=== PATIENT | male | born 1955 | race Caucasian/White ===

== ENCOUNTER → 2016-09-29 | Outpatient (CLI) | payer BC ==
[~2016-09-29] MED LIST: ASPI-391 PO; RXC5 PO
--- NOTE | 2016-09-29 17:06 | DIAGNOSTIC IMAGING REPORT ---
CHEST 2 VIEWS ROUTINE CLINICAL HISTORY: PRE OP, LAB FIRST, THEN CPL COMPARISON STUDY: 08/08/2015 FINDINGS: The bones soft tissues and hemidiaphragms are normal. The cardiomediastinal silhouette is normal. The lungs are clear. The pulmonary vasculature is normal. IMPRESSION: Negative chest. Electronically signed by: Aydin Clark M.D. 09/29/2016 5:04 PM Dictated Date/Time: 09/29/2016 5:04 PM
== END | disposition home or self-care (01) ==
LOC: C.CPL 16:03
PROVIDERS: ATTEND Orthopaedic Surgery
DX: Z01.818 Encounter for other preprocedural examination (principal)

== ENCOUNTER 2017-04-24 10:18 | Inpatient (IN) | payer BC ==
[2017-03-24 09:47] VITALS: Ht 180.3 cm; Wt 107.0 kg
--- NOTE | 2017-03-24 10:14 | PAT Medication Instructions ---
Service Date Mar 24, 2017. Current Home Medication List Dhrhdnm-Wodhizkviigoa-Ftolhrzr (Excedrin Extra Strength), 2 TAB PO PRN Medication Instructions For Your Scheduled Surgery - Hold the following medications 1 week prior to surgery: Ljexjga-Vweqmsyrcqpap-Vktuwkzy (Excedrin Extra Strength), 2 TAB PO PRN - Take the following medications the morning of surgery with a sip of water OTHERWISE NOTHING TO EAT OR DRINK AFTER MIDNIGHT: Tylenol (may take if needed up to 4 hours prior to surgery) If you have any questions please call us at [phone] or [phone] or [phone]
[2017-03-24 10:48] LABS: BASO % 0.6 %; BASO ABS # 0.04 K/uL (0-0.2); EOS ABS # 0.21 K/uL (0-0.5); HEMATOCRIT 43.8 % (42-52); HEMOGLOBIN 14.8 g/dL (14.0-18.0); IG# 0.02 K/uL (0.00-0.02); LYMPH % 29.5 %; LYMPH ABS # 2.05 K/uL (1.2-3.4); MEAN CORPUSCULAR HEMOGLOBIN 30.1 pg (25-34); MEAN CORPUSCULAR HGB CONC 33.8 g/dl (32-36); MEAN PLATELET VOLUME 10.2 fL (7.4-10.4); MONO % 6.6 %; MONO ABS # 0.46 K/uL (0.11-0.59); NEUT ABS # 4.17 K/uL (1.4-6.5); PLATELET COUNT 250 K/uL (130-400); RED CELL DISTRIBUTION WIDTH CV 14.5 % (11.5-14.5); RED CELL DISTRIBUTION WIDTH SD 47.4 fL (36.4-46.3); WHITE BLOOD COUNT 6.95 K/uL (4.8-10.8)
[2017-03-24 10:53] LABS: INR 0.9 (0.9-1.1); PTT PATIENT 25.4 SECONDS (21.0-31.0)
[2017-03-24 12:02] LABS: CALCIUM 8.8 mg/dl (8.5-10.1); CREATININE 0.98 mg/dl (0.60-1.40); POTASSIUM 4.3 mmol/L (3.5-5.1)
--- NOTE | 2017-04-22 17:12 | HISTORY & PHYSICAL EXAMINATION ---
DATE OF ADMISSION: 04/24/2017 CHIEF COMPLAINT: Primary osteoarthritis of the right knee. HISTORY OF PRESENT ILLNESS: Jose Elias is a pleasant 62-year-old male who underwent a left total knee arthroplasty in August 2015. He did very well with that. Unfortunately, he has been having right knee pain. X-rays and clinical examination were diagnostic for primary osteoarthritis of the right knee. After failing extensive conservative treatment he has elected to proceed with a right total knee arthroplasty. PAST MEDICAL HISTORY: Denies. PAST SURGICAL HISTORY: Significant for removal of salivary gland, tonsillectomy, bilateral knee arthroscopies, surgery for perforated bowel and a left total knee arthroplasty in August 2015. ALLERGIES: None. MEDICATIONS: None. FAMILY HISTORY: Denies. SOCIAL HISTORY: He is , has 1-2 drinks a week, has a 10-year history of a pack a day and has 2 children. REVIEW OF SYSTEMS: He complains of right knee pain. All other pertinent review of systems are negative. PHYSICAL EXAMINATION: GENERAL: He is awake, alert and oriented x3. He is in no apparent distress. He is very pleasant. HEENT: Pupils are equal, round and reactive to light. Extraocular motion intact. Oral mucosa is pink and moist. HEART: Regular rate per radial pulse. LUNGS: Hollie symmetrically bilaterally with no audible breath sounds. ABDOMEN: Soft, nontender, nondistended. MUSCULOSKELETAL: On physical examination of the right knee, he is able to ambulate independently. There is a very mild effusion. He has bony hypertrophy of the right knee. He has significant tenderness to palpation along the medial joint line and over the distal medial femoral condyle. IMAGING DATA: X-rays of the right knee do show advanced osteoarthritis mostly involving the medial compartment. IMPRESSION: Primary osteoarthritis of the right knee. PLAN: Will proceed with a Biomet Vanguard total knee arthroplasty. Postoperatively, he will be started on aspirin 325 mg twice a day for DVT prophylaxis and kept in the hospital for 2 midnights for postoperative medical management.
[2017-04-24] VITALS (7 sets, daily range): BP systolic 102–140; BP diastolic 65–98; PULSE 62–91; TEMP 36.4–36.7; O2SAT 97–100
[~2017-04-24] VITALS: Ht 180.3 cm; Wt 107.0 kg
[~2017-04-24 10:18] MED LIST changes: +ACETAMINOPHEN 500 MG TAB PO SCH; +BUPIVACAINE 0.25% 30 ML VIAL ONE; +BUPIVACAINE 0.5 % 5 MG/1 ML PF 10ML VIAL ONE; +CEFAZOLIN 2000MG IV PUSH 10 ML IV SCH; +FAMOTIDINE 20 MG TAB PO SCH; +GABAPENTIN 300 MG CAP PO SCH; +LACTATED RINGER'S 1000ML 1,000 ML IV SCH; +LACTATED RINGER'S 1000ML 500 ML IV ONE; +LACTATED RINGER'S 1000ML IV SCH; +ROPIVACAINE 5MG/ML 30 ML 150 MG, BUPIVACAINE 0.5% MPF INJ 30 ML, EpINEphrine HCL INJ 0.... INFIL SCH; -RXC5 PO
--- NOTE | 2017-04-24 11:52 | History & Physical Bridge Note ---
H&P Re-Evaluation Bridge Note: I have examined the patient, reviewed the History & Physical and in the interval since the performance of the History & Physical I have noted the following changes of clinical significance: No changes noted
[2017-04-24] MEDS ORDERED: PROPOFOL IV EMULSION 10 MG/ML 20 ML VIAL IV ONE ×2 (13:43→16:10)
[2017-04-24] MEDS ORDERED: LIDOCAINE HCL 2% 2 ML VIAL (20MG/ML) ONE (13:43)
[2017-04-24] MEDS ORDERED: FENTANYL CITRATE INJ 50 MCG/1 ML 2 ML VIAL ONE (13:44)
[2017-04-24] MEDS ORDERED: MIDAZOLAM HCL 1 MG/ML 2ML VIAL ONE ×3 (13:48→15:55)
[2017-04-24] MEDS ORDERED: BACITRACIN 50000 UNIT VIAL ONE (13:59)
[2017-04-24] MEDS ORDERED: ORTHO JOINT ANESTHETIC ONE (13:59)
[2017-04-24] MEDS: TRANEXAMIC ACID INJ 1,000 MG in SYRINGE 0 ML IV SCH ×2 (14:30→16:30)
[2017-04-24] MEDS ORDERED: EpHEDrine SULFATE INJ 50 MG/ML AMP IV PRN (15:00)
[2017-04-24] MEDS ORDERED: ATROPINE SULFATE 0.1 MG/ML 5ML SYR IV PRN (15:00)
[2017-04-24] MEDS ORDERED: FLUMAZENIL 0.1 MG/1 ML 10 ML VIAL IV PRN (15:00)
[2017-04-24] MEDS ORDERED: ONDANSETRON INJ 2 MG/ML 2 ML VIAL IV PRN ×2 (15:00→16:45)
[2017-04-24] MEDS ORDERED: NALOXONE HCL 0.4 MG/1 ML VIAL/CARP IV PRN (15:00)
[2017-04-24] MEDS ORDERED: PROMETHAZINE HCL INJ 12.5 MG in SODIUM CHLORIDE 0.9% 50ML 50 ML IV PRN (15:00)
[2017-04-24] MEDS ORDERED: PHENYLEPHRINE HCL INJ 10 MG/ML VIAL ONE (16:02)
--- NOTE | 2017-04-24 16:36 | [facility] Post Operative Brief Note ---
Immediate Operative Summary Operative Date Apr 24, 2017. Pre-Operative Diagnosis right knee degenerative joint disease Post-Operative Diagnosis right knee degenerative joint disease Procedure(s) Performed right knee total arthroplasty Surgeon Dr. Darwin Sutton Enterprise Software Developer Surgeon(s) Sahil NGUYEN Estimated Blood Loss 5ML Findings as above Specimens Right knee bone and tissue Complication(s) None Disposition Recovery Room / PACU
[2017-04-24] MEDS ORDERED: MoRPHine SULFATE 2 MG/ML CARP IV PRN (16:45)
[2017-04-24] MEDS ORDERED: CEFAZOLIN IV 2,000 MG in DEXTROSE 5% 50ML 50 ML IV SCH (16:45)
[2017-04-24] MEDS ORDERED: MAGNESIUM HYDROXIDE SUSP 30 ML UDC PO PRN (16:45)
[2017-04-24] MEDS ORDERED: OXYCODONE HCL IR 5 MG TAB (IMMEDIATE RELEASE) PO PRN (16:45)
[2017-04-24] MEDS ORDERED: BISACODYL 10 MG SUPP PR PRN (16:45)
[2017-04-24] MEDS ORDERED: METOCLOPRAMIDE HCL INJ 5 MG/ML 2 ML VIAL IV PRN (16:45)
[2017-04-24] MEDS ORDERED: SOD PHOSPHATE/SOD BIPHOSPHATE ENEMA 132 ML BTL PR PRN (16:45)
--- NOTE | 2017-04-24 17:07 | DIAGNOSTIC IMAGING REPORT ---
RIGHT KNEE 2 VIEWS History: Right total knee arthroplasty. Degenerative arthritis. Postop. FINDINGS: The patient is status post a right total knee arthroplasty. The hardware is intact. No fracture or dislocation. Skin torie and surgical drains are in place. IMPRESSION: Right total knee arthroplasty. No evidence for hardware complication. Electronically signed by: Gary Ross M.D. 04/24/2017 5:06 PM Dictated Date/Time: 04/24/2017 5:05 PM
--- NOTE | 2017-04-24 17:14 | Anesthesiology Progress Note ---
Anesthesia Post Op Note Date & Time Apr 24, 2017 at 17:14 Vital Signs Pain Intensity: 0 Vital Signs Past 12 Hours Date Time Temp Pulse Resp B/P (MAP) Pulse Ox O2 Delivery O2 Flow Rate FiO2 04/24/17 16:42 36.4 81 16 100/60 98 Nasal Cannula 2 04/24/17 10:45 36.4 91 18 140/98 99 Room Air Notes Mental Status: alert / awake / arousable, participated in evaluation Pt Amnestic to Procedure: Yes Nausea / Vomiting: adequately controlled Pain: adequately controlled Airway Patency, RR, SpO2: stable & adequate BP & HR: stable & adequate Hydration State: stable & adequate Neuraxial Anesthesia: was administered, sensory block is resolving Anesthetic Complications: no major complications apparent
[2017-04-24] MEDS: SENNA 8.6 MG TAB PO SCH (20:49)
[2017-04-24] MEDS: KETOROLAC TROMETHAMINE 30 MG/ML VIAL IV. SCH (20:49)
[2017-04-24] MEDS: DOCUSATE SODIUM 100 MG CAP PO SCH (20:49)
[2017-04-24] MEDS: ASPIRIN 325 MG ECTAB PO SCH (20:49)
[2017-04-24] MEDS: ACETAMINOPHEN IV 1,000 MG in EMPTY BAG 0 ML IV SCH (20:50)
[2017-04-24] MEDS: SODIUM CHLORIDE 0.9% 1000ML 1,000 ML IV SCH (20:50)
[2017-04-24] MEDS: CEFAZOLIN IV 2,000 MG in SYRINGE 0 ML IV SCH (22:16)
[2017-04-25] VITALS (7 sets, daily range): BP systolic 103–126; BP diastolic 60–79; PULSE 68–86; TEMP 36.3–36.8; O2SAT 97–100
[2017-04-25] MEDS: KETOROLAC TROMETHAMINE 30 MG/ML VIAL IV. SCH ×4 (02:06→20:02)
[2017-04-25] MEDS: ACETAMINOPHEN IV 1,000 MG in EMPTY BAG 0 ML IV SCH ×4 (04:07→20:14)
[2017-04-25] MEDS: SODIUM CHLORIDE 0.9% 1000ML 1,000 ML IV SCH ×2 (04:09→13:29)
[2017-04-25] MEDS: CEFAZOLIN IV 2,000 MG in SYRINGE 0 ML IV SCH (05:33)
[2017-04-25 07:53] LABS: HEMATOCRIT 38.2 % (42-52); HEMOGLOBIN 13.2 g/dL (14.0-18.0); MEAN CELL VOLUME 88.4 fL (80-100); MEAN CORPUSCULAR HEMOGLOBIN 30.6 pg (25-34); MEAN CORPUSCULAR HGB CONC 34.6 g/dl (32-36); MEAN PLATELET VOLUME 10.4 fL (7.4-10.4); PLATELET COUNT 218 K/uL (130-400); RED CELL DISTRIBUTION WIDTH CV 14.2 % (11.5-14.5); RED CELL DISTRIBUTION WIDTH SD 46.3 fL (36.4-46.3); WHITE BLOOD COUNT 13.21 K/uL (4.8-10.8)
--- NOTE | 2017-04-25 08:12 | Discharge Instructions ---
Discharge Instructions Date of Service Apr 25, 2017. Admission Reason for Admission: Right Knee Degenerative Joint Disease Discharge Discharge Diagnosis / Problem: Right Total Knee Discharge Goals Goal(s): Decrease discomfort, Improve function Activity Recommendations Activity Limitations: as noted below . Instructions / Follow-Up Instructions / Follow-Up Activity and Therapy Recommendations: * If you are using [facility] then Physical Therapy will be provided until they feel you are ready to start Outpatient Physical Therapy. If you are not using a Home Health agency then Outpatient Physical Therapy should start about 3-5 days from your day of surgery. Therapy will last about 6-10 weeks * It is important not to put a pillow under your knee when you are relaxing or sleeping. It is just as important to make sure you are getting your knee perfectly straight as it is to regain your knee bend. * You were shown a series of exercises in the hospital. Do these exercises three times each day including the exercises you were shown in physical therapy. * Get up and walk several times each day. For the first four weeks, try not to stand or walk for more than one hour at a time. If you do stand or walk for more than one hour, you will not hurt anything, but your leg will likely swell. * As you feel comfortable, you may change from the walker or crutches to a cane and then to independent walking. Medications: * Narcotic You will likely be sent home from the hospital with a prescription for the narcotic pain medication that worked best throughout your stay. * Aspirin Most patients will be required to take Aspirin 325mg twice a day for 6 weeks after surgery. This is obtained [id number] and a prescription is not necessary. * Other medications may be prescribed for specific circumstances. If you have any questions, please call the office at . * Resume previous home medications unless otherwise instructed TEDs/Elastic Stockings: The white elastic stockings help limit swelling and prevent blood clots from forming in your legs.~ The more you wear them, the more they work. Wear them for six weeks. Showering: You may shower 5 days from the day of surgery. Let the soapy shower water run over it the torie. Do not scrub or soak the dressing or the incision. Things To Watch For: * Drainage from the incision site that occurs more than one week after your surgery. * Increased redness at the incision site. * Fever above 102 degrees Fahrenheit. * Unusual chest pain or shortness of breath. * Call [facility] at with any of the above problems Follow-Up Visit: Follow-up with Dr. Sutton 2 weeks after your day of surgery. An appointment was probably scheduled when you signed-up for surgery in the office. If you have any questions call Office Instructions: More detailed instructions as well as Frequently Asked Questions were provided in a folder by our office when you signed-up for surgery. Please review these instructions when you get home. If you have any further questions or concerns, please feel free to call the office at [phone] Current Hospital Diet Patient's current hospital diet: Regular Diet Discharge Diet Recommended Diet: Regular Diet Procedures Procedures Performed: right knee total arthroplasty Pending Studies Studies pending at discharge: no Medical Emergencies . Who to Call and When: Medical Emergencies: If at any time you feel your situation is an emergency, please call 911 immediately. . Non-Emergent Contact Non-Emergency issues call your: Surgeon Call Non-Emergent contact if: wound has increased drainage, wound has increased redness . "Provider Documentation" section prepared by Darwin Sutton. . VTE Core Measure Inpt VTE Proph given/why not?: Other Anticoagulation (Aspirin 325 twice a day for 6 weeks)
[2017-04-25] MEDS: MULTIVITAMIN TAB PO SCH (08:27)
[2017-04-25] MEDS: DOCUSATE SODIUM 100 MG CAP PO SCH ×2 (08:27→21:17)
[2017-04-25] MEDS: ASPIRIN 325 MG ECTAB PO SCH ×2 (08:27→21:17)
--- NOTE | 2017-04-25 08:35 | PROGRESS NOTE ---
DATE: 04/25/2017 DATE: 04/25/2017 CHIEF COMPLAINT: Status post right total knee arthroplasty postop day #1. PROGRESS: Jose Elias was seen and examined at bedside today. Overall, he is doing very well. He said he has very minimal pain in his knee. He has already been up and ambulating and has no complaint. PHYSICAL EXAMINATION: The dressing is clean and dry and the drain is to suction. He has active dorsiflexion and plantarflexion of his right ankle and sensation is intact. LABORATORY DATA: He has an H&H today of 13.2 and 38.2. His glucose is still pending. His vital signs are all stable on room air. He is voiding on his own. X-rays postoperatively of the right knee show the prosthesis to be in anatomical alignment without any evidence of fracture, dislocation or loosening. IMPRESSION: Status post right total knee arthroplasty postop day #1. PLAN: At this point, he is doing very well and happy with his progress. He is on aspirin for DVT prophylaxis. Physical therapy will see him to get him up and ambulating today. Tomorrow morning the nursing staff can change the dressing, pull the drain and plan to discharge him to home.
[2017-04-25 08:39] LABS: CALCIUM 8.3 mg/dl (8.5-10.1); CREATININE 0.97 mg/dl (0.60-1.40)
[2017-04-25] MEDS: SENNA 8.6 MG TAB PO SCH (21:17)
[2017-04-26] MEDS: KETOROLAC TROMETHAMINE 30 MG/ML VIAL IV. SCH ×2 (02:04→07:30)
[2017-04-26] MEDS: ACETAMINOPHEN IV 1,000 MG in EMPTY BAG 0 ML IV SCH (04:11)
[2017-04-26 06:05] VITALS: BP 101/64; PULSE 73; TEMP 36.4; O2SAT 98
[2017-04-26] MEDS: DOCUSATE SODIUM 100 MG CAP PO SCH (07:30)
[2017-04-26] MEDS: ASPIRIN 325 MG ECTAB PO SCH (07:30)
[2017-04-26] MEDS: MULTIVITAMIN TAB PO SCH (07:31)
[2017-04-26] MEDS ORDERED: ASPEC325 PO (09:06)
[2017-04-26] MEDS ORDERED: RXC5 PO (09:06)
--- NOTE | 2017-04-26 09:25 | PROGRESS NOTE ---
DATE: 04/26/2017 CHIEF COMPLAINT: Status post right total knee arthroplasty postop day #2. PROGRESS: Jose Elias was seen and examined at bedside today. Overall, he is doing very well. He has been ambulating well with physical therapy, does not have much pain in his knee, has no complaints. PHYSICAL EXAMINATION: RIGHT KNEE: The dressing has been changed, the drain has been pulled. He is sitting with his knee flexed at 90 degrees. He has active dorsiflexion and plantarflexion of his right ankle. IMPRESSION: Status post right total knee arthroplasty, postop day #2. PLAN: At this point, he is doing very well and happy with his progress. He will be seen by physical therapy again today. We will continue him on aspirin for DVT prophylaxis and send him home later this morning.
[2017-04-26 09:32] VITALS: BP 101/64; PULSE 73; TEMP 36.4; O2SAT 98
--- NOTE | 2017-04-26 09:42 | DISCHARGE SUMMARY ---
DISCHARGE DIAGNOSIS: Primary osteoarthritis of the right knee. PROCEDURE: Right total knee arthroplasty on 04/24/[address] Darwin Sutton. DISCHARGE INSTRUCTIONS: 1. Aspirin 325 mg twice a day for 6 weeks. 2. MARGOTH hose stockings for 6 weeks. 3. Oxycodone 5-10 mg every 4 hours as needed for pain. 4. Follow up with Dr. Sutton in 2 weeks. 5. Call the office of Dr. Sutton with any questions or concerns. HOSPITAL COURSE: Jose Elias is a pleasant 62-year-old male who presented to my office with chronic right knee pain. X-rays and clinical examination were diagnostic for primary osteoarthritis of the right knee. After failing conservative treatment, he elected to undergo a right total knee arthroplasty. On 04/24/2017, he arrived at [facility] and underwent a right knee replacement without complication. He had a spinal anesthetic and a right adductor nerve block. Postoperatively, he was started on aspirin 325 mg twice a day and discharged to general orthopedic floor. His hospital course was uneventful. On postop day #1, his H&H was stable at 13.2 and 38.2. He was ambulating well with physical therapy and his pain was well controlled. On postop day #2, the dressing was changed, the drain was pulled, he continued to work well with physical therapy and he was subsequently discharged to home with the above instructions.
--- NOTE | 2017-05-18 20:08 | OPERATIVE REPORT ---
DATE OF OPERATION: 04/24/2017 PREOPERATIVE DIAGNOSIS: Primary osteoarthritis of the right knee. POSTOPERATIVE DIAGNOSIS: Same. PROCEDURE: Right total knee arthroplasty. SURGEON: Dr. Darwin Sutton. SUPERVISOR CELL OPERATION: Sahil Roy PA-C, whose assistance was necessary for positioning of the leg and helping with instrumentation and retraction. ANESTHESIA: Spinal with a right adductor nerve block. COMPLICATIONS: None. CONDITION: Stable to PACU. IMPLANTS USED: I used a Biomet Vanguard right total knee arthroplasty with a size 65 femur, a 75 tibia, a 31 x 8 mm patella and a 10 mm posterior stabilized poly. Complements were cemented in place with Palacos-G cement. INDICATIONS: Jose Elias is a pleasant 62-year-old male who presented to my office with chronic right knee pain. X-rays and clinical examination were diagnostic for primary osteoarthritis of the right knee. After failing conservative treatment, he elected to undergo a right total knee arthroplasty. OPERATION AND FINDINGS: On 04/24/2017, he arrived at [facility] for the above procedure. He was seen in the preoperative holding area and the operative extremity was identified and signed. He was given a preoperative antibiotic, a spinal anesthetic and a right adductor nerve block. He was taken back to the operating room, laid on the table in supine position and put under basic sedation. The right knee was then prepped and draped in sterile fashion. Time-out was done and the patient and operative extremity was properly identified. A midline incision was made directly over the patella, dissection was taken down to the extensor mechanism and a medial parapatellar approach was utilized. The medial retinaculum was released and the fat pad was left intact. The patella was then translated laterally and the knee was flexed. A drill was sent down the center of the femoral canal, followed by an intramedullary yaz. Off that yaz, a distal femoral cutting block was placed and a 9 mm was resected off the distal femur, 5 degrees of valgus. A posterior referencing guide was used to measure the distal femur and it measured to be a size 65. Two drill holes were placed in 3 degrees of external rotation and a 4-in-1 cutting block was impacted into place. Anterior, posterior and chamfer cuts were then made. A box cutting guide was then impacted into place and the box was resected for the posterior stabilizing component. Attention was then turned to the tibia. A drill was sent down the center of the tibial canal followed by an intramedullary guide. Off that guide, a proximal tibial resection guide was placed and 2 mm was resected off the low medial side. The posterior aspect of the knee was then opened up and any soft tissue remnants were removed and osteophytes were removed posteriorly. The proximal tibia was then exposed and it was measured to be a size 75. The baseplate was placed in the appropriate rotation, drilled and then punched. Trial components were then placed and the knee was brought through a full range of motion and felt to be stable. The patella was then everted 8 mm was resected off the posterior aspect of the patella. The patella measured to be a size 31 and 3 drill holes were placed. A trial patellar button was placed and the knee was brought through a full range of motion and felt to be stable. All trial components were then removed. The surrounding soft tissues were injected with 100 mL of orthopedic pain control cocktail. The components were then cemented in place with Palacos-G cement. A size 10 polyethylene insert seemed to be the best fit and a final size 10 poly was snapped into place and the anterior bar was locked. The knee was brought through a full range of motion and felt to be stable. The knee was then irrigated with 3 liters of normal saline solution with bacitracin. Two drains were placed. The extensor mechanism was closed with #2 FiberWire suture in the superior medial aspect and #1 Vicryl, both proximally and distally. Skin was closed with 2-0 Vicryl, 3-0 V-Loc suture and torie. He was then placed in a soft compressive dressing, transferred to a hospital bed and taken to the postanesthesia care unit in stable condition. He tolerated the procedure well. I attest to the content of the Intraoperative Record and any orders documented therein. Any exception s are noted below.
== END 2017-04-26 11:07 | disposition home or self-care (01) | DRG 470 ==
LOC: C.ACU 10:18 → C.3E 10:50 → ENRESERV 16:54
PROVIDERS: ADMIT Orthopaedic Surgery; ATTEND Orthopaedic Surgery
PROC: 0SRC0J9 Replacement of Right Knee Joint with Synthetic Substitute, Cemented, Open Approach (ICD-10-PCS; principal; 2017-04-24 13:10)
DX: M17.11 Unilateral primary osteoarthritis, right knee (principal); E66.9 Obesity, unspecified; Z96.652 Presence of left artificial knee joint; Z68.32 Body mass index [BMI] 32.0-32.9, adult